=== PATIENT | male | born 1950 | race Caucasian/White ===

== ENCOUNTER 2016-11-25 13:39 | Inpatient (IN) | payer MEDICARE, MEDICAID ==
--- NOTE | ~2016-11-25 | PN ---
Unit #: [id number] #: [id number] Patient: LEE LIGHT [id number] [facility] [address] [place] [address] [id number] I MR#: [id number] NAME: LEE LIGHT ROOM: [facility] Age: 66 Sex: M Admission Date: 11/25/2016 : 1950 Attending Physician: Lee Watts M.D. Admitting Physician: Charis Carnes PROGRESS NOTES DATE OF SERVICE 11/27/2016 DISCUSSION Lee has settled into the unit well with no acculturation or social issues. He is tolerating his increased dose of fluoxetine with no adverse side effects. Mood remains depressed and a little labile with a decreased range of affect. He is alert and fully oriented. His memory and concentration are fair to good. His thought processes are logical with concreteness but no psychosis. ASSESSMENT Major depression. PLAN Continue current treatment plan. Dictated by... Charis Carnes/carmenza TD: 11/28/2016 04:15 JOB #: [id number] JOSE PROGRESS NOTES Page 1 of 1 X Lee Watts MD PROGRESS NOTE
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
--- NOTE | ~2016-11-25 | HP ---
Unit #: [id number] #: [id number] Patient: LEE LIGHT [id number] [place] [address] [id number] I MR#: [id number] NAME: LEE LIGHT ROOM: [facility] Age: 66 Sex: M Admission Date: 11/25/2016 : 1950 Attending Physician: Lee Watts M.D. Admitting Physician: Lee Watts M.D. HISTORY AND PHYSICAL HISTORY OF PRESENT ILLNESS Lee is a 66 year old admitted to [address] [place] [address] with depression verbalizing wanting to hurt himself. PAST MEDICAL HISTORY 1. Coronary artery disease. a. History of congestive heart failure. 2. COPD. 3. Obesity. 4. History of anemia. 5. 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 6. Bilateral club feet. PAST SURGICAL HISTORY 1. Left foot. 2. Cholecystectomy. 3. Appendectomy. ALLERGIES No known drug allergies. SOCIAL HISTORY He denies cigarettes, alcohol, and illicit drug use. FAMILY HISTORY Medically noncontributory. REVIEW OF SYSTEMS CONSTITUTIONAL: No fever or chills. HEENT: Denies any sore throat, ear pain or runny nose. CARDIOVASCULAR: Denies chest pain, irregular heart rhythm or palpitations. CHEST: Denies shortness of breath or cough. No hemoptysis. He does report that he uses oxygen. GASTROINTESTINAL: Denies nausea, vomiting, diarrhea or chronic constipation. ENDOCRINE: Denies history of increased thirst or urination. No recent significant weight loss or gain. GENITOURINARY: Denies dysuria, frequency, or hematuria. SKIN: Denies any rashes. HEMATOLOGIC: Denies history of increased bleeding or bruising. MUSCULOSKELETAL: Denies any hot, swollen joints. No generalized muscle pain. Unit #: [id number] #: [id number] Patient: LEE LIGHT NEUROLOGIC: Denies problems with vision or speech. No frequent, severe headaches. No numbness, tingling or weakness in any extremities. Denies loss of bladder or bowel control. CURRENT MEDICATIONS 1. Seroquel 600 mg q.h.s. 2. KCl 40 mEq q.i.d. 3. Protonix 40 mg b.i.d. 4. Hydralazine 25 mg b.i.d. 5. Humibid LA 600 mg b.i.d. 6. Symbicort b.i.d. 7. Ferrous gluconate 324 mg q. day. 8. Combivent nebulizers. PHYSICAL EXAMINATION GENERAL: Alert, obese. No apparent distress. VITAL SIGNS: Blood pressure 146/72, heart rate 70, respirations 16, and temperature 98.6. WEIGHT: 222. HEIGHT: 5 feet 8 inches. SKIN: Warm and dry without rash or lesion. HEENT: Significant congenital deformity of the cranium and facial bones noted. TMs not viewed. Oral and nasal passages clear. Conjunctivae clear. PERRLA. EOMs intact. NECK: Supple without lymphadenopathy or thyromegaly. HEART: Regular rate and rhythm without murmur. LUNGS: Clear. ABDOMEN: Soft, nontender. : Not done. EXTREMITIES: No evidence of cyanosis, clubbing or edema. Moves all without focal deficit. NEUROLOGICAL: Unable to complete extended exam. He does move all extremities without focal deficit. Hand perioperative nurse is equal. Gait is abnormal because of bilateral clubfeet. Left foot has been partially surgically repaired. IMPRESSION Psychiatric admission. RECOMMENDATIONS PSYCHIATRIC: Per psychiatrist. MEDICAL: 1. I see no contraindication to participate in this facility's activities. 2. Pulse ox on room air was 94. We will provide O2 at 2 liters per nasal cannula for pulse ox equal to or less than 90 and for complaints of shortness of air. MEDICAL PROGNOSIS Good. MEDICAL CONDITION Stable. Dictated by... Unit #: [id number] #: [id number] Patient: LEE LIGHT Deanna Fox, P.A.-C. for Charis Kee/francisco TD: 11/26/2016 06:49 JOB #: [id number] HISTORY AND PHYSICAL Page 1 of 1 X Deanna Fox X HISTORY AND PHYSICAL
--- NOTE | ~2016-11-25 | CO ---
Unit #: [id number] #: [id number] Patient: LEE LIGHT [id number] [facility] [address] [place] [address] [id number] MR#: [id number] NAME: LEE LIGHT ROOM: [facility] Age: 66 Sex: M Admission Date: 11/25/2016 : 1950 Attending Physician: Lee Watts M.D. Consultation Date: 11/25/2016 CONSULTATION REPORT SUBJECTIVE Lee is a 56-year-old who uses oxygen. This was outlined and addressed under his admission H and P dated 11/25/2016. Please see H and P dated 11/25/2016. Dictated by... Deanna Fox P.A.-C. for Charis Kee/roz TD: 11/26/2016 11:52 JOB #: [id number] CONSULTATION REPORT Page 1 of 1 X Deanna Fox CONSULTATION REPORT
--- NOTE | ~2016-11-25 | PN ---
Unit #: [id number] #: [id number] Patient: ALCIDES DOLAN [id number] [facility] [address] [place] [address] [id number] I MR#: [id number] NAME: ALCIDES DOLAN ROOM: [facility] Age: 66 Sex: M Admission Date: 11/25/2016 : 1950 Attending Physician: Alcides Watts M.D. Admitting Physician: Charis Carnes PROGRESS NOTES DATE 11/29/2016 DISCUSSION Mr. Dolan continues to be compliant with medications. His mood is less depressed with a little bit brighter range of affect today. He is alert and fully oriented. His memory and concentration are fair to good, and his thought processes are logical and concrete but nonpsychotic. ASSESSMENT Major depression. PLAN Continue current treatment plan anticipating discharge soon. Dictated by... Alcides Watts M.D. MRH/bzg TD: 12/03/2016 09:20 JOB #: [id number] [facility] PROGRESS NOTES Page 1 of 1 X Alcides Watts MD PROGRESS NOTE
--- NOTE | ~2016-11-25 | PN ---
Unit #: [id number] #: [id number] Patient: ALCIDES LIGHT [id number] [facility] [address] [place] [address] [id number] I MR#: [id number] NAME: ALCIDES LIGHT ROOM: [facility] Age: 66 Sex: M Admission Date: 11/25/2016 : 1950 Attending Physician: Alcides Watts M.D. Admitting Physician: Charis Carnes PROGRESS NOTES DATE 11/28/2016 DISCUSSION Alcides says he is doing a little bit better today, and his affect is consistent with his mood. He is alert and fully oriented with no psychosis and reduced suicidal ideation. He has pulse ox in the 90% and does not appear to need his oxygen at night. ASSESSMENT Major depression. PLAN Continue current treatment plans. Dictated by... Alcieds Watts M.D. MRH/bzg TD: 11/29/2016 08:34 JOB #: [id number] [facility] PROGRESS NOTES Page 1 of 1 X Alcides Watts MD PROGRESS NOTE
[~2016-11-25 13:39] MED LIST: ADVAIR 100-501 EAC1 INH; ASPIRIN81 MG PO; DUONEB; FERROUS SU325 ( 65 ) PO; FLOMAX0.4 M1 PO; FLUOXETINE HCL20 M1 PO; GUAIFENESIN; NORVASC10 MG PO; PANTOPRAZOLE SO40 MG PO; SEROQUEL PO; VITAMIN C PO; [UNRECOGNIZED DRUG - OTHER]
== END 2016-12-01 09:30 | disposition short-term general hospital (02) | DRG 881 ==
LOC: P2L 13:39
DX: F32.9 Major depressive disorder, single episode, unspecified (principal); I50.9 Heart failure, unspecified; R45.851 Suicidal ideations; I25.10 Atherosclerotic heart disease of native coronary artery without angina pectoris; J44.9 Chronic obstructive pulmonary disease, unspecified; D64.9 Anemia, unspecified; Z90.49 Acquired absence of other specified parts of digestive tract